=== PATIENT | female | born 1985 | race African-American/Black ===

== ENCOUNTER 2016-10-02 21:21 | Emergency (ER) | payer OTHER ==
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
[2016-10-02] MEDS ORDERED: FLEXERIL PO ONE (22:21)
[2016-10-02] MEDS ORDERED: MOTRIN PO ONE (22:21)
[2016-10-02 23:37] VITALS: BP 112/70
== END 2016-10-02 23:49 | disposition home or self-care (01) ==
LOC: ED 21:21
DX: S16.1XXA Strain of muscle, fascia and tendon at neck level, initial encounter (principal); V49.59XA Passenger injured in collision with other motor vehicles in traffic accident, initial encounter; Y93.9 Activity, unspecified; Y92.9 Unspecified place or not applicable; Y99.9 Unspecified external cause status
CPT/HCPCS: 99283